=== PATIENT | male | born 1950 | race Caucasian/White ===

== ENCOUNTER 2024-02-21 12:36 | Emergency (ER) | payer MEDICARE, SELFPAY ==
[2024-02-21] VITALS (40 sets, daily range): BP systolic 155–188; BP diastolic 109–150; PULSE 96–122; RESP 13–28; TEMP 36.6; O2SAT 94–98
--- NOTE | 2024-02-21 13:05 | ECG_ITS ---
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 Measurements Intervals [place] Rate: 118 P: 90 TN: 143 QRS: -89 QRSD: 121 T: 81 QT: 339 QTc: 477 Interpretive Statements SINUS TACHYCARDIA POSSIBLE RIGHT ATRIAL ENLARGEMENT [0.25mV P-WAVE] RIGHT BUNDLE BRANCH BLOCK [120+ ms QRS DURATION, UPRIGHT V1, 40+ ms S IN I/aVL/V4/V5/V6] LEFT ANTERIOR FASCICULAR BLOCK [QRS AXIS <= -45, QR IN I, RS IN II] No previous ECG available for comparison Electronically Signed On 02-21-2024 23:23:56 CDT by Lucia Jacques M.D. [id number]
--- NOTE | 2024-02-21 13:24 | ED_ITS ---
HPI - Weakness 2 General: Chief complaint: Weakness Stated complaint: FTT Time Seen by Provider: 02/21/24 12:47 Source: patient and EMS Limitations: other History of Present Illness: History is very limited on this patient. EMS report to the nursing staff was that he was failure to thrive and is a hospice patient. They could not provide any additional information. The patient speaks in a very low difficult to understand voice. He denies any particular symptoms and cannot give me any detailed information about why he is here where he lives etc. MD Complaint: generalized weakness Physical Exam 2 Narrative: EXAM NARRATIVE: The patient's very thin ill-appearing very soft whispery voice. Makes good eye contact and does respond with shrugs or very singular answers. Const: COMMON NORMALS: no acute distress and alert GENERAL APPEARANCE: f rail appearing ORIENTATION/CONSCIOUSNESS: Yes oriented to person HENMT: COMMON NORMALS: normocephalic and oropharynx normal; oral mucous membranes not moist HEAD & SCALP: normocephalic FACE & SINUS: normal facial exam and face symmetric Eye: COMMON NORMALS: Equal, round and reactive pupils present, EOMs intact bilaterally and conjunctivae normal CONJUNCTIVA: Yes conjunctivae normal P UPIL: Yes Equal, round and reactive pupils present Neck/C-Spine: COMMON NORMALS: full ROM, no lymphadenopathy and no JVD Chest: COMMONS NORMALS: normal inspection of the chest Resp: COMMON NORMALS: No retractions and No use of accessory muscles A USCULTATION: crackles and diminished lung sounds Cardio: COMMON NORMALS: no JVD, regular rate, regular rhythm and Peripheral pulses 2+ throughout RATE: regular rate and tachycardic RHYTHM: regular rhythm PERIPHERAL PULSES: Peripheral pulses 2+ throughout GI: COMMON NORMALS: Normal to inspection, nondistended, normoactive bowel sounds present, Soft to palpation, non-tender, no masses and no bruits P ALPATION: Yes Soft to palpation : COMMON NORMALS: Yes no CVA tenderness BLADDER/KIDNEY EXAM: Yes no CVA tenderness Back/Pelvis: COMMON NORMALS: no CVA tenderness, thoracic and lumbar spine normal to inspection and no thoracic nor lumbar tenderness Extremity: COMMON NORMALS: normal to inspection, full ROM, capillary refill normal, no calf tenderness and no pedal edema Neuro: GERMANIA COMA SCALE: document GCS findings [place] coma scale eye opening: Spontaneous [place] coma scale verbal response: Orientated [place] coma scale motor response: Obey commands [place] coma scale total score: 15 COMMON NORMALS: moves all extremities, no focal motor deficits and no sensory deficits noted SENSORIUM/ORIENTATION: Yes alert and Yes oriented to person Psych: COMMON NORMALS: mental status grossly normal and denies suicidal ideation Skin: COMMON NORMALS: no rashes or lesions noted GENERAL SKIN EXAM: no rashes or lesions noted and turgor decreased Course 2 Reevaluation(s): Reevaluation #1: Patient's much more community communicative now. We also obtained information from Stephan who helps care for him in his home. He also have information from the hospice nurse. He apparently has lung cancer and is on hospice for that condition. He is currently a full code. He lives by himself and again Stephan provides assistance to him in his home. Current clinical picture suggest end-stage disease. I reviewed his current findings and his level of understanding of his diagnosis with the patient. He voiced understanding that he does have lung cancer. We also discussed the consideration for long-term care to make him more comfortable and assist with his ADLs on a regular basis. He voiced understanding but at this point in time he is adamant that he wants to go back home. He desires no further intervention in the emergency department. The RN associated with this patient also discussed with Stephan and relayed his wishes and Stephan said that he would help care for him and for the next few days and that the patient's sister was due from out of town in the next 2 to 3 days and together hopefully they can encourage and convince the patient that he should have a different living arrangement to make him more comfortable. Again the patient was offered on multiple times observation status or and/or possible arrangement for long-term care facility which she refused at this time. The patient is being discharged back to his domicile at his request. Vital Signs: Vital signs: Vital Signs Temperature 98 F 02/21/24 12:44 Pulse Rate 114 H 02/21/24 15:00 Respiratory Rate 19 H 02/21/24 15:00 Blood Pressure 169/115 02/21/24 15:00 Pulse Oximetry 96 02/21/24 14:55 Oxygen Delivery Me thod Room Air 02/21/24 14:25 MDM - Weakness Medical Decision Making Patient was very limited history and no prior visits within the system. This patient apparently has a history of lung cancer and is on hospice and lives at home. He has a janitor caretaker who also assist him several days a week. Patient apparently did not request EMS transport and this was requested by his janitor caretaker who is not a professional janitor caretaker but a friend. His clinical exam revealed him to be alert and conversant in a very low whispery voice. He had crackles on his lung exam and tachycardia but otherwise no significant clinical findings. Patient agreed to screening and ancillary studies which included laboratories and chest x-ray and EKG. His laboratories did reveal leukocytosis and a decreased albumin and a slightly elevated alkaline phosphatase. TSH was normal. During his emergency department stay the RN can converse with both the hospice nurse and Stephan and they expressed some concern that the patient was living alone and should be considered for long-term care facility. This was reviewed with the patient and he expressed no desire took for consideration at this time. We also offered observation or admission for further stabilization here and then potential long-term care placement. Again he acknowledged our offer but was adamant that he wanted to be discharged back to home. This was relayed to his janitor caretaker who said he would continue to assist him and that the patient's daughter was due to be in this area the next 2 to 3 days. While this patient is not optimal to go back to his current situation is his request and he has no apparent pertubation in his decision-making capacity although I think there is likely some denial of his disease process. Lab Data I reviewed the patient's lab results. 02/21/24 13:15 02/21/24 13:15 Radiology Impressions Chest X-Ray 02/21/24 13:29 IMPRESSION: The findings are abnormal. Chest CT recommended. Laboratory Results WBC 15.46 10^3/uL (3.29-11.43) H 02/21/24 13:15 RBC 4.19 10^6/uL (3.85-5.65) 02/21/24 13:15 Hgb 11.60 g/dL (11.27-16.99) 02/21/24 13:15 Hct 35.4 % (37-53) L 02/21/24 13:15 MCV 84.5 fl (82-101) 02/21/24 13:15 MCH 27.7 pg (27-33) 02/21/24 13:15 MCHC 32.8 g/dL (30-55) 02/21/24 13:15 RDW 15.9 % (12.1-15.1) H 02/21/24 13:15 Plt Count 374 10^3/cmm (157-399) 02/21/24 13:15 MPV 10.2 fL (7.4-10.4) 02/21/24 13:15 Neut % (Auto) 82.7 % 02/21/24 13:15 Lymph % (Auto) 6.8 % 02/21/24 13:15 Carson % (Auto) 9.6 % 02/21/24 13:15 Eos % (Auto) 0.1 % 02/21/24 13:15 Baso % (Auto) 0.3 % 02/21/24 13:15 Neut # (Auto) 12.80 10^3/uL (1.8-7.7) H 02/21/24 13:15 Lymph # (Auto) 1.1 10^3/uL (0.8-4.8) 02/21/24 13:15 Carson # (Auto) 1.5 10^3/uL (0.2-0.9) H 02/21/24 13:15 Eos # (Auto) 0.0 10^3/uL (0.0-0.8) 02/21/24 13:15 Baso # (Auto) 0.0 10^3/uL (0.0-0.1) 02/21/24 13:15 Nucleated RBC % (auto) 0 % 02/21/24 13:15 Nucleated RBCs # 0.0 /100WBC 02/21/24 13:15 Sodium 134 mmol/L (136-145) L 02/21/24 13:15 Potassium 3.6 mmol/L (3.5-5.1) 02/21/24 13:15 Chloride 94 mmol/L (98-107) L 02/21/24 13:15 Carbon Dioxide 27 mmol/L (22-29) 02/21/24 13:15 Anion Gap 16.6 (5-19) 02/21/24 13:15 BUN 19 mg/dL (8-23) 02/21/24 13:15 Creatinine 1.0 mg/dL (0.7-1.2) 02/21/24 13:15 GFR Calculation Not Reportable 02/21/24 13:15 Glucose 109 mg/dL (65-115) 02/21/24 13:15 Calculated Osmolality 281 mOsm/kg (285-295) L 02/21/24 13:15 Calcium 9.2 mg/dL (8.5-10.5) 02/21/24 13:15 Magnesium 2.0 mg/dL (1.7-2.3) 02/21/24 13:15 Total Bilirubin 1.0 mg/dL (0.15-1.2) 02/21/24 13:15 AST 15 U/L (0-40) 02/21/24 13:15 ALT 8 U/L (0-41) 02/21/24 13:15 Alkaline Phosphatase 140 U/L (40-130) H 02/21/24 13:15 Total Protein 7.0 g/dL (6.6-8.7) 02/21/24 13:15 Albumin 3.2 g/dL (3.5-5.2) L 02/21/24 13:15 Globulin 3.8 g/dL (1.3-4.6) 02/21/24 13:15 TSH 2.43 uIU/mL (0.27-4.20) 02/21/24 13:15 All radiology interpretation(s) finalized by discharge Discharge Plan Discharge Patient Disposition: Home Clinical Impression: Lung cancer Qualifiers: Laterality: unspecified laterality Lung location: unspecified part of lung Q ualified Code(s): C34.90 - Malignant neoplasm of unspecified part of unspecified bronchus or lung Condition: Stable Discharge Orders: Discharge ED (Routine); Ordered 02/21/24 Ordered By: eDnnis Hernandez Referrals: Flora Bolden NP [Primary Care Provider] - Discharge Diet: Usual diet Discharge Activity: Resume usual activity Patient Instructions: Opioid Safety, Pain Management Activity Restrictions/Additional Instructions: You have requested discharge from the emergency department. You have lung cancer and have limited capacity to care for yourself on a regular basis and we recommend that you consider long-term care. You should review and consider your options with your family. If it anytime he have any new or worsening symptoms you are welcome to return to this emergency department for reevaluation. Coding Level of Care Code ED Car Usher for Raul De Jesus
--- NOTE | 2024-02-21 13:29 | XRR_ITS ---
PROCEDURE INFORMATION: Exam: XR Chest Exam date and time: 02/21/2024 1:36 PM Age: 73 years old Clinical indication: Cough TECHNIQUE: Imaging protocol: Radiologic exam of the chest. Views: 1 view. COMPARISON: No relevant prior studies available. FINDINGS: Lungs: See Heart/Mediastinum finding. Pleural spaces: Unremarkable. No pleural effusion. No pneumothorax. Heart/Mediastinum: Widening of the superior mediastinum with a mass or consolidation in the medial left upper lobe. Chest CT recommended. Vasculature: Tortuosity of the thoracic aorta with a possible aneurysm near the arch. Bones/joints: Unremarkable. XR/XR chest 1V portable [id number] IMPRESSION: The findings are abnormal. Chest CT recommended.
[2024-02-21 13:42] LABS: Basophils % 0.3 %; Eosinophils % 0.1 %; Hematocrit 35.4 % (37-53); Lymphocytes # 1.1 10^3/uL (0.8-4.8); Lymphocytes % 6.8 %; Mean Corpuscular HGB Conc 32.8 g/dL (30-55); Mean Corpuscular Hemoglobin 27.7 pg (27-33); Mean Corpuscular Volume 84.5 fl (82-101); Mean Platelet Volume 10.2 fL (7.4-10.4); Monocytes # 1.5 10^3/uL (0.2-0.9); Monocytes % 9.6 %; Neutrophils % 82.7 %; Nucleated Red Blood Cells % 0 %; Platelet Count 374 10^3/cmm (157-399); Red Blood Count 4.19 10^6/uL (3.85-5.65); Red Cell Distribution Width 15.9 % (12.1-15.1); White Blood Count 15.46 10^3/uL (3.29-11.43)
[2024-02-21] MEDS: lactated ringers 1,000 ML 999 ML IV (13:48)
[2024-02-21 13:59] LABS: Alanine Aminotransferase 8 U/L (0-41); Albumin Level 3.2 g/dL (3.5-5.2); Alkaline Phosphatase 140 U/L (40-130); Anion Gap 16.6 (5-19); Aspartate Amino Transferase 15 U/L (0-40); Blood Urea Nitrogen 19 mg/dL (8-23); Calcium 9.2 mg/dL (8.5-10.5); Carbon Dioxide 27 mmol/L (22-29); Chloride 94 mmol/L (98-107); Globulin 3.8 g/dL (1.3-4.6); Glucose 109 mg/dL (65-115); Osmolality Calculated 281 mOsm/kg (285-295); Potassium 3.6 mmol/L (3.5-5.1); Sodium 134 mmol/L (136-145); Thyroid Stimulating Hormone 2.43 uIU/mL (0.27-4.20)
--- NOTE | 2024-02-21 17:27 | PC.NURSE ---
PT BEGAN TO GET AGITATED AND TAKING OFF ALL HIS MONITOR LEADS AND PULSE OX. PT DEMANDS TO GO HOME. DR ERAZO NOTIFIED. PT REFUSING TO KEEP BEDSIDE MONITORING ON. 20G IV IN R AC STILL IN PLACE.
== END 2024-02-21 17:45 | disposition home or self-care (01) ==
PROVIDERS: Emergency Provider Emergency Medicine; PCP Nurse Practitioner Family
DX: C34.90 Malignant neoplasm of unspecified part of unspecified bronchus or lung (principal)
CPT/HCPCS: 71045; 80053; 83735; 84443; 85025; 93005; 99285; J7120